=== PATIENT | female | born 1935 | race Caucasian/White ===

== ENCOUNTER 2017-01-23 17:39 | Observation (INO) | payer MEDICARE, OTHER ==
[~2017-01-23] VITALS: Ht 182.9 cm; Wt 97.3 kg
[~2017-01-23 17:39] MED LIST: CHOL100045 PO; FENO160T PO; HYDR25TA4 PO; LEVO100T97 PO; LISI-567 PO; Metoprolol Tartrate PO; NITR0.4T SL; OMEG1CAP17 PO; RIVA20TA PO; SERT20OR PO
[2017-01-23 17:43] VITALS: BP 188/71; PULSE 62; RESP 16; O2SAT 97
--- NOTE | 2017-01-23 18:08 | ED.REPORT ---
HPI-Neurologic Deficit Date of Service Jan 23, 2017 ED Provider: Dr. Darrius Madrid D.O. The patient is an 81 year old female with a medical history including hypertension, paroxysmal atrial fibrillation, asthma, and peripheral vascular disease predominantly affecting carotid arteries who presents to the ED accompanied by her daughter reporting aphasia onset 16:30. Associated symptoms include headache, confusion, and slurred speech. She has been short of breath recently but attributes this to allergies. The patient denies chest pain, new neck pain, vomiting, diarrhea, dysuria, numbness, weakness, or other symptoms. She has never had similar symptoms in the past. The patient took 81mg ASA at onset. Her symptoms have completely resolved in the ED. Nursing Notes Stated Complaint: UNINTELLIGIBLE SPEECH Chief Complaint: Stroke Symptoms Nursing Notes Reviewed: Yes Allergies: Coded Allergies: Penicillins (Verified Allergy, Mild, 01/23/17) Per patient report, "Instant vaginal infection once I take Penicillin." Scheduled Hydrochlorothiazide (Hydrochlorothiazide) 25 Mg Tablet 25 MG PO DAILY Levothyroxine (Synthroid) 100 Mcg Tablet 100 MCG PO DAILY Lisinopril (Lisinopril) 20 Mg Tablet 20 MG PO DAILY General Time Seen by Provider: 18:08 Chief Complaint Other (Aphasia) Hx Obtained From: Patient, Daughter Arrived By: Walk-in Sudden in Onset?: Yes Onset Occurred: 1 - 4 hours ago Symptom Duration: 1 - 4 hours Progression Since Onset: Resolved Location: : Head Quality: Painful Severity: Current: No pain currently Severity: Maximum: Moderate Related History: Reports: Atrial fibrillation, Hypertension Immunizations: Unknown Recent Healthcare: No recent doctor visit Similar Sx Previous: No Risk Factors NIH Stroke Scale Level of Consciousness: Alert and responsive (0) Ask Month & Age: Both questions right (0) Open/Close Eyes/Hand Line Pilot: Performs both tasks (0) Horizontal EO Movements: None (0) Visual Sanchez: No visual loss (0) Facial Palsy: Normal symmetry (0) Right Arm Motor Drift (10s): No drift 10 sec (0) Left Arm Motor Drift (10s): No drift 10 sec (0) Right Leg Motor Drift (5s): No drift 5 sec (0) Left Leg Motor Drift (5s): No drift 5 sec (0) Limb Ataxia FNF/Heel-Colvin: No ataxia (0) Sensation (Arms/Legs/Face): No sensory loss (0) Language Aphasia: No aphasia, normal (0) Dysarthria: No dysarthria, normal (0) Extinction/Inattention: No exctinct/inattent (0) NIHSS Score: 0 Time NIHSS Performed: 18:25 Date NIHSS Performed: Jan 23, 2017 Past Medical History Past Medical History 1. Peripheral vascular disease predominantly affecting carotid arteries. 2. Dyslipidemia. 3. Hypertension. 4. Hypothyroidism. 5. Paroxysmal atrial fibrillation. 6. Degenerative disease/chronic back pain. 7. "Reactive airways disease ?" Reports: Asthma, Hypertension Past Surgical History None reported Family History One sister has had a pacemaker Another sister from heart related disease Smoking History Never Smoker Social History Drug Use: Denies drug use Other Social History: Good social support Ambulatory Status Independent Review of Systems Constitutional: Denies: Fever Respiratory: Reports: Shortness of breath, Denies: Non-productive cough Cardiovascular: Denies: Chest pain GI: Denies: Diarrhea, Nausea, Vomiting Musculoskeletal: Denies: Neck pain Neurologic: Reports: Confusion, Headache, Slurred speech, Unable to speak, Denies: Numbness, Weakness Complete sys rev & neg: except as marked. Female: Denies: Dysuria Physical Exam Initial Vital Signs Vital Signs (First) Date Time Temp Pulse Resp B/P Pulse Ox O2 Delivery O2 Flow Rate FiO2 01/23/17 17:43 36.9 62 16 188/71 97 Room Air Initial VS: Reviewed ENT: Mucous membranes moist, Conjunctiva normal Neck: Supple, Full range of motion Abdomen / GI: Soft, Non-tender Skin: Warm, Dry, No cyanosis Psychiatric: Mood/affect normal, Behavior normal, Normal thought content General/Constitutional: Awake, Alert, No acute distress Head / Eyes: Atraumatic, Normocephalic, PERRL, EOMI Respiratory / Chest: Breath sounds NL, Breath sounds = bilat, No respiratory distress Cardiovascular: Heart rate NL, Regular rhythm, Heart sounds NL Neurologic: Oriented X3, Speech NL, No motor deficits, No sensory deficits, CN II - XII intact Interpretation & Diagnostics Lab Results Interpretation Result Diagram: 01/23/17181001/23/17 181 Test 01/23/17 18:11 White Blood Count 8.1th/mm3 (3.8-10.1) Red Blood Count 4.75mil/mm3 (3.90-5.20) Hemoglobin 14.1g/dL (12.0-15.6) Hematocrit 42.2% (35.0-46.0) Mean Corpuscular Volume 88.8fL (81-100) Mean Corpuscular Hemoglobin 29.7pg (27.0-35.0) Mean Corpuscular Hemoglobin Concent 33.4% (32.0-37.0) Red Cell Distribution Width 12.8% (12.3-15.4) Platelet Count 217bil/L (150-400) Neutrophils (%) (Auto) 52.1% (40-74) Lymphocytes (%) (Auto) 33.9% (14-46) Monocytes (%) (Auto) 9.8% (4-12) Eosinophils (%) (Auto) 3.8% (0-5) Basophils (%) (Auto) 0.2% (0-3) Prothrombin Time 10.7sec (8.1-12.5) Prothromb Time International Ratio 1.00ratio Activated Partial Thromboplast Time 30.4sec (22.8-33.0) Sodium Level 132mEq/L (134-144) Potassium Level 3.5mEq/L (3.5-5.2) Chloride Level 94mEq/L (97-108) Carbon Dioxide Level 24mmol/L (18-29) Blood Urea Nitrogen 22mg/dL (8-27) Creatinine 0.96mg/dL (0.57-1.00) Estimat Glomerular Filtration Rate 80mL/min (>59) Glucose Level 117mg/dL (60-99) Calcium Level 9.1mg/dL (8.5-10.1) Total Bilirubin 0.9mg/dL (0.0-1.2) Aspartate Amino Transf (AST/SGOT) 29U/L (0-50) Alanine Aminotransferase (ALT/SGPT) 24U/L (0-32) Alkaline Phosphatase 90U/L (25-165) Troponin T < 0.010ug/L (0.0-0.011) Total Protein 7.1g/dL (6.4-8.4) Albumin 4.1g/dL (3.4-5.0) Triglycerides Level 157mg/dL (0-149) Cholesterol Level 191mg/dL (100-199) LDL Cholesterol, Calculated 121.600mg/dL (0-99) VLDL Cholesterol 31.400mg/dL HDL Cholesterol 38mg/dL (>39) Cholesterol/HDL Ratio 5.03 (0.0-4.4) Thyroid Stimulating Hormone (TSH) 0.397uIU/mL (0.450-4.500) Free Thyroxine 1.55ng/dL (0.82-1.77) ECG Interpretation ECG Interpretation: Sinus rhythm rate 60 Probable left atrial enlargement Time: 18:18 Interpreted by: ED physician CT Head Interpretation IMPRESSION: No acute intracranial disease process. Dictated by: Stephanie Munoz MD, PhD on 01/23/2017 at 18:18 Study: Head CT no contrast Interpretation / Wet Read by: Interpret - Radiologist Re-Eval/Medical Decision Med Decision/Clinical Course Very pleasant 81-year-old female with resolved aphasia symptoms consistent with a transient ischemic attack. Her CT scan today and now is reassuring. We will admit to complete the stroke workup. She will be treated with aspirin. Source of Hx: Old records Re-Evaluation/Progress : Time of Eval: 19:19 Patient Status: Condition improved Re-Evaluation/Progress Note: Discussed with patient CT and lab results, diagnosis, and plan for admit. Patient agrees with plan for care and all questions were addressed. Consultation : Referral / Consult Name: Fidelina Hernandez DO Consulted With: Hospitalist Call Returned at: 19:16 Drywall Worker: Agrees with eval, Agrees with plan, Accepts admit Counseled Regarding: Diagnosis, Lab results, Need for admission Discharge & Departure Impression: Primary Impression: Transient ischemic attack Transient cerebral ischemia type: unspecified Qualified Code: G45.9 - Transient cerebral ischemic attack, unspecified Disposition: ADMITTED TO HOSPITAL Discharge Condition All VS Reviewed: Yes Condition: Improved Referrals: Steph Castillo MD (PCP) Tahmina Attestation Portions of this note were transcribed by Zoraida Thruman. I, Dr. Madrid, personally performed the history, physical exam, and medical decision-making; I reviewed and confirmed the accuracy of the information in the transcribed note. Signed by: Tahmina Atwood, 01/23/2017, 19:30 copies to: Steph Castillo MD, Todd P DO Jan 23, 2017 18:08 ZORAIDA THURMAN Jan 23, 2017 18:12
--- NOTE | 2017-01-23 18:21 | DRSVH ---
PROCEDURE: CT BRAIN WITHOUT CONTRAST ([id number]) INDICATIONS: probable TIA TECHNIQUE: Noncontrast 4.5 mm thick angled axial sections acquired from the foramen magnum to the vertex, with c oronal reformats. COMPARISON: None. FINDINGS: Image quality: Excellent. CSF spaces: Basal cisterns are patent. No extra-axial fluid collections. The ventricles are symmet melvina in size and shape. Brain: No intracranial bleeds or masses. There is cerebral volume loss for age, with resultant vent ricular and sulcal prominence. There are periventricular and deep white matter chronic small vessel ischemic changes. There is intracranial internal carotid artery and vertebral artery atherosclerosis . Skull and face: Calvarium and visualized facial bones appear intact, without suspicious lesions. Sinuses: Visualized sinuses and mastoids are clear. IMPRESSION: No acute intracranial disease process. Dictated by: Stephanie Munoz MD, PhD on 01/23/2017 at 18:18 Approved by: Stephanie Munoz MD, PhD on 01/23/2017 at 18:19
[2017-01-23 18:30] VITALS: BP 166/61; PULSE 68; RESP 16; O2SAT 98
[2017-01-23 18:35] LABS: BASOPHILS % (AUTO) 0.2 % (0-3); EOSINOPHILS % (AUTO) 3.8 % (0-5); MONOCYTES % (AUTO) 9.8 % (4-12); Mean Corpuscular Hemoglobin 29.7 pg (27.0-35.0); Mean Corpuscular Volume 88.8 fL (81-100); NEUTROPHILS % (AUTO) 52.1 % (40-74); Platelet Count 217 bil/L (150-400)
[2017-01-23 18:49] LABS: TROPONIN T < 0.010 ug/L (0.0-0.011)
[2017-01-23 19:31] VITALS: BP 173/58; PULSE 63; RESP 18; O2SAT 98
[2017-01-23 19:45] VITALS: BP 173/58; PULSE 63; RESP 18; O2SAT 98
[2017-01-23] MEDS ORDERED: Alum-Mag Hydrox-Simeth 30 mL Suspension PO PRN (19:50)
[2017-01-23] MEDS ORDERED: Ondansetron 2 mg/mL 2 mL Inj IVPUSH PRN (19:50)
--- NOTE | 2017-01-23 20:13 | PCM.HPMED ---
Subjective Date of Service Jan 23, 2017 Primary Provider: Admitting Physician: Fidelina Hernandez DO Primary Care Physician: Steph Castillo MD Attending Physician: Fidelina Hernandez DO Admit Status: From the Emergency Department Chief Complaint: Expressive aphasia History of Present Illness: This is a 81-year-old female with past medical history significant for hypothyroidism, hypertension, and paroxysmal atrial fibrillation who presents after sudden onset of speech difficulty. The patient states that at approximate 4:30 PM today she was sitting with her family when she developed "garbled speech." She she denies any confusion but states that she was not able to speak in any discernible language. Just before the onset of the speech difficulty she had a migraine headache. Her migraine headaches are chronic and described as partial loss of vision and gait instability. These have been ongoing for years. At the onset of the symptoms she took a 81 mg aspirin. The symptoms had resolved and she was back to her baseline by within one hour.. She denies any other symptoms such as chest pain or pressure, nausea, vomiting, diaphoresis, numbness or tingling in extremities. Initial vital signs were temperature 36.9 Celsius, pulse 62, respiratory rate 16 , blood pressure 180/71, satting at 97% on room air. CBC showed no concerning abnormalities. Sodium was 132, glucose 117, troponin less than 0.010. EKG showed sinus rhythm with rate of 60, probable left atrial enlargement and left ventricular hypertrophy. CT of the brain without contrast showed no acute intracranial disease process. In the emergency department the patient was given aspirin 81 mg. Review of Systems: A comprehensive review of systems was conducted with the patient and found to be negative except as above in the History of Present Illness. Allergies Coded Allergies: Penicillins (Verified Allergy, Mild, 01/23/17) Per patient report, "Instant vaginal infection once I take Penicillin." Home Medications Hydrochlorothiazide 25 mg daily Levothyroxine 100 mg daily Lisinopril 20 mg daily PMH Hypothyroidism Hypertension Peripheral vascular disease predominantly affecting carotid arteries Paroxysmal atrial fibrillation: One episode several years ago. Degenerative disease Possible history of reactive airway disease. Surgical History None Family History Father of CVA. Mother of congestive heart failure. Social History Hx Alcohol Use: No Hx Substance Use: No Smoking Status: Never Smoker Exam Vital Signs Vital Sign - Last Date Time Temp Pulse Resp B/P Pulse Ox O2 Delivery O2 Flow Rate FiO2 6/7/17 19:45 63 18 173/58 98 Room Air 01/23/17 17:43 36.9 Exam General: No acute distress, well-developed, well-nourished, appropriately interactive, appears younger than age. HEENT: Normocephalic, atraumatic. External ears without defect. Pupils equal, round, and reactive to light and accommodation. Anicteric sclerae, moist conjunctivae, and no lid lag. Oropharynx free of erythema and cobble stoning with moist mucosa. Neck: Supple with full range of motion. No jugular venous distension. No bruits. No lymphadenopathy or thyromegaly. Cardiovascular: Regular rate and rhythm. 2/6 murmur heard at right sternal border., No rubs or gallops appreciated Pulmonary: Clear to auscultation bilaterally with no crackles, wheezes, or rhonchi. Normal respiratory effort with no use of accessory muscles. Abdomen: Bowel tones present. Soft, nontender, nondistended. No hepatosplenomegaly or masses appreciated. Extremities: No clubbing, cyanosis, edema, or lymphadenopathy appreciated. Skin: Normal temperature, turgor, and texture; no rash, ulcers, or subcutaneous nodules appreciated. Neurological: Cranial nerves grossly intact. Normal muscle strength, tone, and bulk. Reflexes, coordination, and sensory function within normal limits. No known gait impairment. Woli-ye-nvdm tests within normal limits. No upper or lower extremity drift. Psychiatric: Normal mood and affect. Alert and oriented to person, place, and time. Lab and Diagnostics Result Diagram: 01/23/17 1811 01/23/17 1811 X-Rays, CTs and MRIs CT brain without contrast on 01/23/2017: IMPRESSION: No acute intracranial disease process. Dictated by: Stephanie Munoz MD, PhD on 01/23/2017 at 18:18 Assessment & Plan This is a 81-year-old female past medical history significant for hypertensio and paroxysmal atrial fibrillation, and peripheral vascular disease primarily affecting the carotid arteries who presents today with expressive aphasia. The speech difficulty was preceded by a migraine headache which she gets chronically. At the onset of the symptoms of the expressive aphasia she took a aspirin 81 mg. Within 1 hour she had returned back to baseline. Expressive aphasia, present on admission, ongoing: -Likely a transient ischemic attack versus CVA. In the differential is complex migraine. -MRI stroke protocol and morning -Nothing by mouth until speech eval. -Aspirin daily. -Patient declines statin. -Permissive hypertension protocol. -Lipid panel and hgbA1c -Hypertension, present on admission: -We will hold lisinopril, hydrochlorothiazide. -Permissive hypertension protocol. History of paroxysmal atrial fibrillation, present on admission, stable: -Patient states she had one episode of atrial fibrillation several years ago. She denies any additional episodes. -Follow-up with her care provider concerning possible atrial fibrillation. -We will place on telemetry overnight. Hypothyroidism, present on admission: -Continue levothyroxine. TSH and free t4 ordered. Hyponatremia, present remission, ongoing: -Mild hyponatremia with sodium of 132. Likely secondary to hypovolemia and hydrochlorothiazide. -NS at 70 ml/hr. -CMP in the morning. Elevated blood glucose level, present on admission, ongoing: -Blood glucose on admission 117. -A1c ordered. DVT prophylaxis with Lovenox. Patient is admitted under observation status with expected length of stay less than 2 midnights due to severity of presenting symptoms, risk of adverse event, and complexity of treatment plan. Pain Evaluation: Adequate Pain Control Resuscitation Status: DNR/DNI:Do Not Resuscitate/Intubate Attending Statement The patient was seen and examined together with house staff on 01/23/2017 and I agree with the history, exam and plan as outlined in the note above. Alverto Espinoza DO Jan 23, 2017 20:13 Fidelina Hernandez DO Jan 24, 2017 00:30
[2017-01-23 20:24] LABS: APPEARANCE,URINE HAZY (CLEAR,HAZY); COLOR,URINE YELLOW (YELLOW)
[2017-01-23] MEDS ORDERED: Labetalol 5 mg/mL 4 mL Inj IVPUSH PRN (20:25)
[2017-01-23] MEDS ORDERED: hydrALAZINE 20 mg/mL Inj IVPUSH PRN (20:25)
[2017-01-23] MEDS ORDERED: Polyethylene Glycol (PEG) 17 Gm Powder PO PRN (20:25)
[2017-01-23 20:27] LABS: OCCULT BLOOD,URINE NEGATIVE (NEGATIVE)
[2017-01-23 20:28] VITALS: BP 156/61; PULSE 58; RESP 18; O2SAT 95
[2017-01-23 20:28] LABS: UROBILINOGEN,URINE NORMAL (NORMAL)
[2017-01-23] MEDS: 0.9% Sodium Chloride 1,000 ML IV SCH (21:14)
[2017-01-24] VITALS (8 sets, daily range): BP systolic 142–167; BP diastolic 64–81; PULSE 60–74; RESP 16–20; O2SAT 94–98
[2017-01-24 06:33] LABS: BASOPHILS % (AUTO) 0.4 % (0-3); EOSINOPHILS % (AUTO) 4.8 % (0-5); MONOCYTES % (AUTO) 9.8 % (4-12); Mean Corpuscular Volume 89.8 fL (81-100); Platelet Count 216 bil/L (150-400)
[2017-01-24] MEDS: 0.9% Sodium Chloride 1,000 ML IV SCH (10:48)
--- NOTE | 2017-01-24 10:57 | DRSVH ---
PROCEDURE: MRI STROKE PROTOCOL ([id number]) Pre- and post-contrast brain MRI, non-contrast brain MR angiogram, pre- and postcontrast neck MR kobe ogram INDICATIONS: Expressive aphasia TECHNIQUE: Brain: Noncontrast axial T1 spin echo, axial T2 fast spin echo, sagittal and axial FLAIR, coronal T2 fast spin echo, axial gradient echo, axial diffusion and ADC through the brain. After the administr ation of contrast, axial 3D VIBE of the cranial vasculature and brain. Brain MRA: Non-contrast 3-D time of flight MR angiogram, with multiple lsrjxyu-yttueqvrc-bunrdheujl (MIP) reformats performed. Neck MRA: Axial and sagittal TruFISP through the neck. Coronal dynamic MR angiogram during administ ration of contrast in the arterial and venous phases, with 3-dimenstional dfgvwfo-tafbttvfu-hrjlyzfkf n (MIP) reformats constructed from subtraction images. COMPARISON: [facility], CT, CT BRAIN WO CON, 01/23/2017, 18:04. FINDINGS: Image quality: Excellent. BRAIN: CSF spaces: There is mild cerebral volume loss with prominence of the ventricles and sulci. Basal c isterns are patent. No extra-axial fluid collections. Brain: No intracranial hemorrhage, mass, or mass effect. Chiang-white matter interface is preserved. Diffusion weighted images demonstrate no acute infarcts. Brainstem appears normal. Normal intravas cular flow voids are present. No abnormal intracranial enhancement. Skull and face: Calvarial marrow signal is normal. Orbits appear normal. Sinuses: Sinuses and mastoids are clear. BRAIN MR ANGIOGRAM: Anterior circulation: Intracranial internal carotid arteries are patent bilaterally. The flow withi n the paired anterior cerebral arteries is patent bilaterally. The flow within the middle cerebral a rteries is patent bilaterally. The anterior communicating artery appears patent. No high-grade sten oses, occlusions, or aneurysms. Posterior circulation: The visualized portions of the vertebral appear patent bilaterally and join t o form a patent basilar artery. The flow within the posterior cerebral arteries is patent bilaterall y. No high-grade stenoses, occlusions, or aneurysms. NECK MR ANGIOGRAM: Carotids: Great vessels demonstrate a bovine aortic arch with common origin of the right cephalic an d left common carotid arteries as they arise from the aortic arch. The origins of the common carotid arteries appear patent. The calibers and courses of both common carotid arteries are normal. There is mild narrowing of less than 50% in the right carotid bulb. The left carotid bulb is widely paten t. The internal carotid arteries demonstrate normal course and caliber. Posterior circulation: The origins of the vertebral arteries appear patent. More superior portions of both vertebral arteries demonstrate normal course and caliber, and join to form a normal appearing basilar artery. Miscellaneous: Subclavian arteries appear patent. Pre-contrast images through the neck demonstrate mild degenerative disc disease in the lower cervical spine at C6-C7. IMPRESSION: BRAIN MRI: 1. No evidence of infarct or other acute intracranial abnormality. 2. Mild cerebral volume loss. BRAIN MR ANGIOGRAM: 1. No high-grade stenosis or occlusion of the central intracranial arteries. NECK MR ANGIOGRAM: 1. No high-grade stenosis or occlusion of the head and neck arteries. There is mild narrowing of le ss than 50% in the right carotid bulb. The estimate of stenosis included in the report of the imaging study was calculated using the NASCET method Dictated by: Cali King M.D. on 01/24/2017 at 10:46 Approved by: Cali King M.D. on 01/24/2017 at 10:56
--- NOTE | 2017-01-24 11:27 | NUR ---
Evaluation completed. Please go to "Notes" then click on "Assessments and Notes" (bottom left corner of screen). Then select appropriate discipline tab on top of screen.
--- NOTE | 2017-01-24 16:42 | NUR ---
Social Work: Initial Assessment / Readiness for d/c Data: Pt is an 81 y/o female admitted for TIA with resolved aphasia. Pt's PCP is Dr Castillo, pt's insurance is Medicare with [employer]. EMR reviewed. Readmit score not listed. TITLE SEARCHER met with pt at bedside, role explained. Pt states she lives independently with her in a senior living facility with no DME. pt drives, has no hx of HH or SNF, pt has LTC insurance, no VA benefits, is not a caregiver. No D/C planning needs at this time. MD states pt likely to d/c today or tomorrow. No further TITLE SEARCHER needs, TITLE SEARCHER will continue to follow if needs arise. Assessment: Pt who is independent at baseline. Plan: Pt will d/c home via POV when medically stable, likely today or tomorrow per MD. No D/C planning needs at this time. MD states pt likely to d/c today or tomorrow. No further TITLE SEARCHER needs, TITLE SEARCHER will continue to follow if needs arise. LUDMILA Bolanos Addendum: 01/24/17 at 1645 by DANNY ORELLANA SS Amended: Links added.
--- NOTE | 2017-01-24 17:54 | NUR ---
Activity: Patient had MRI and ECHO today. She has no Noticable Neuro Deficites. She is able to verbalize appropriately. She is using her call light to ask for help and she ambulates in her room independent.
--- NOTE | 2017-01-24 18:45 | NUR ---
Case Management: Explained JURADO to patient at 1730, all questions answered. Signed original placed in chart, copy given to patient. Ethel Nino RN
--- NOTE | 2017-01-25 00:20 | PCM.PNMED ---
Subjective Date of Service Jan 25, 2017 Subjective Patient is feeling well she states she is back to her baseline mental function. Exam Vital Signs Vital Sign - Last Date Time Temp Pulse Resp B/P Pulse Ox O2 Delivery O2 Flow Rate FiO2 01/24/17 21:00 36.6 60 18 162/77 94 Room Air Intake and Output 01/24/17 01/24/17 01/25/17 Cumulative From/Thru 15:00 23:00 07:00 01/23/17 17:43 - 01/24/17 19:07 Intake Total 1000 ml 1592 ml Output Total 700 ml Balance 1000 ml 892 ml Intake Oral 1000 ml 1000 ml IV Total 592 ml Output Urine Total 700 ml # Voids 4 4 # Bowel Movements 1 1 Exam General: Patient is in no apparent distress HEENT: Head is atraumatic and normocephalic. Eyes: Pupils are equally round and reactive to light and accommodation. Extraocular muscles are intact. Sclera are white, anicteric. Subconjunctival mucosa is pink. Ears and nose are unremarkable. Oropharynx: There is no mucosal lesions, there is no thrush, there is no pharyngitis. Neck: Is supple, there are no nodes, or masses or tenderness. Chest: Is clear to auscultation and percussion. There are no rales, rhonchi, wheezes or rubs. Heart: Rate, rhythm is regular. There is no murmur, rub or gallop. Abdomen: Good bowel sounds are present. Abdomen is soft, nontender, no organomegaly or masses were appreciated. Extremities: Are symmetrical and well perfused. There is no edema, there is no cellulitis, no rash. Neurologic: There are no focal neurological deficits. Cranial nerves II through XII are intact. There are no sensory or motor deficits. Psychiatric: Patients mood is calm and shows no sign of agitation. Genital: Deferred Rectal: Deferred Lab and Diagnostics Result Diagram: 01/24/1760401/24/17604 Microbiology Name: PEGGY GHOTRA Age/Sex: 81/F Attend Dr: Fidelina Hernandez Acct: [id number] Unit: [id number] Status: ADM Dipti Location: [facility] [place] 3025-1 Re01/23/17 Disch: Specimen: [id number] Collected: 01/23/17 Status: RES Req#: [id number] Received: 01/23/17 Source: URINE CC Sp Desc : STUART Francis Dr: ANDREY LIZAMA MD Ordered: URINE CULT Procedure Result Verified Site Microbiology TYESHA CULT URINE Preliminary 01/24/17 Insufficient growth, culture is reincubated. X-Rays, CTs and MRIs CT brain without contrast on 01/23/2017: IMPRESSION: No acute intracranial disease process. Dictated by: Stephanie Munoz MD, PhD on 01/23/2017 at 18:18 PROCEDURE: MRI STROKE PROTOCOL ([id number]) Pre- and post-contrast brain MRI, non-contrast brain MR angiogram, pre- and postcontrast neck MR angiogram INDICATIONS: Expressive aphasia TECHNIQUE: Brain: Noncontrast axial T1 spin echo, axial T2 fast spin echo, sagittal and axial FLAIR, coronal T2 fast spin echo, axial gradient echo, axial diffusion and ADC through the brain. After the administration of contrast, axial 3D VIBE of the cranial vasculature and brain. Brain MRA: Non-contrast 3-D time of flight MR angiogram, with multiple maximum- intensity-projection (MIP) reformats performed. Neck MRA: Axial and sagittal TruFISP through the neck. Coronal dynamic MR angiogram during administration of contrast in the arterial and venous phases, with 3-dimenstional knyjdhg-cjmhxewei-oedkbzvjcu (MIP) reformats constructed from subtraction images. COMPARISON: [facility], CT, CT BRAIN WO CON, 01/23/2017, 18:04. FINDINGS: Image quality: Excellent. BRAIN: CSF spaces: There is mild cerebral volume loss with prominence of the ventricles and sulci. Basal cisterns are patent. No extra-axial fluid collections. Brain: No intracranial hemorrhage, mass, or mass effect. Chiang-white matter interface is preserved. Diffusion weighted images demonstrate no acute infarcts. Brainstem appears normal. Normal intravascular flow voids are present. No abnormal intracranial enhancement. Skull and face: Calvarial marrow signal is normal. Orbits appear normal. Sinuses: Sinuses and mastoids are clear. BRAIN MR ANGIOGRAM: Anterior circulation: Intracranial internal carotid arteries are patent bilaterally. The flow within the paired anterior cerebral arteries is patent bilaterally. The flow within the middle cerebral arteries is patent bilaterally. The anterior communicating artery appears patent. No high-grade stenoses, occlusions, or aneurysms. Posterior circulation: The visualized portions of the vertebral appear patent bilaterally and join to form a patent basilar artery. The flow within the posterior cerebral arteries is patent bilaterally. No high-grade stenoses, occlusions, or aneurysms. NECK MR ANGIOGRAM: Carotids: Great vessels demonstrate a bovine aortic arch with common origin of the right cephalic and left common carotid arteries as they arise from the aortic arch. The origins of the common carotid arteries appear patent. The calibers and courses of both common carotid arteries are normal. There is mild narrowing of less than 50% in the right carotid bulb. The left carotid bulb is widely patent. The internal carotid arteries demonstrate normal course and caliber. Posterior circulation: The origins of the vertebral arteries appear patent. More superior portions of both vertebral arteries demonstrate normal course and caliber, and join to form a normal appearing basilar artery. Miscellaneous: Subclavian arteries appear patent. Pre-contrast images through the neck demonstrate mild degenerative disc disease in the lower cervical spine at C6-C7. IMPRESSION: BRAIN MRI: 1. No evidence of infarct or other acute intracranial abnormality. 2. Mild cerebral volume loss. BRAIN MR ANGIOGRAM: 1. No high-grade stenosis or occlusion of the central intracranial arteries. NECK MR ANGIOGRAM: 1. No high-grade stenosis or occlusion of the head and neck arteries. There is mild narrowing of less than 50% in the right carotid bulb. The estimate of stenosis included in the report of the imaging study was calculated using the NASCET method Dictated by: Cali King M.D. on 01/24/2017 at 10:46 Approved by: Cali King M.D. on 01/24/2017 at 10:56 Cardiac Echo Impressions Pending Assessment & Plan This is a 81-year-old female past medical history significant for hypertensio and paroxysmal atrial fibrillation, and peripheral vascular disease primarily affecting the carotid arteries who presents today with expressive aphasia. The speech difficulty was preceded by a migraine headache which she gets chronically. At the onset of the symptoms of the expressive aphasia she took a aspirin 81 mg. Within 1 hour she had returned back to baseline. Expressive aphasia, present on admission, now resolved.: -Likely a transient ischemic attack versus CVA. In the differential is complex migraine. -MRI stroke protocol fails to reveal a cause of the above symptoms. -Speech therapy has evaluated the patient and patient is back to baseline and may eat. -We will continue Aspirin daily. -Patient declines statin. However, I believe I have talked her into trying a statin as her best friend is on a statin for the same or similar diagnosis. -Permissive hypertension protocol. -Lipid panel and hgbA1c - Awaiting echocardiogram which is still pending. -Hypertension, present on admission: -We will hold lisinopril, hydrochlorothiazide. -Permissive hypertension protocol. History of paroxysmal atrial fibrillation, present on admission, stable: -Patient states she had one episode of atrial fibrillation several years ago. She denies any additional episodes. -Follow-up with her care provider concerning possible atrial fibrillation. -We will continue telemetry. So far patient has not had any episodes of atrial fibrillation since admission. Hypothyroidism, present on admission: -Continue levothyroxine. -TSH and free t4 ordered. Hyponatremia, present remission, ongoing: -Mild hyponatremia with sodium of 132. Likely secondary to hypovolemia and hydrochlorothiazide. -Continue NS at 70 ml/hr. -Repeat CMP in the morning. Elevated blood glucose level, present on admission, ongoing: -Blood glucose on admission 117. -A1c ordered. DVT prophylaxis with Lovenox. Disposition: Awaiting echocardiogram to be performed and read prior to discharge. Pain Evaluation: Adequate Pain Control GI Prophylaxis: Not indicated VTE Prophylaxis: Sub-Q Enoxaparin Resuscitation Status: DNR/DNI:Do Not Resuscitate/Intubate Alverto Dahl MD Jan 25, 2017 00:20
[2017-01-25] MEDS: 0.9% Sodium Chloride 1,000 ML IV SCH (00:48)
[2017-01-25 01:19] VITALS: BP 119/58; PULSE 55; RESP 18; O2SAT 97
[2017-01-25 05:48] VITALS: BP 138/56; PULSE 53; PULSE 57; RESP 18; O2SAT 95
[2017-01-25 07:01] LABS: BASOPHILS % (AUTO) 0.5 % (0-3); EOSINOPHILS % (AUTO) 5.7 % (0-5); Mean Corpuscular Hemoglobin 29.9 pg (27.0-35.0); Mean Corpuscular Volume 89.3 fL (81-100); NEUTROPHILS % (AUTO) 54.5 % (40-74); Platelet Count 215 bil/L (150-400)
[2017-01-25 08:00] VITALS: PULSE 127; PULSE 63
--- NOTE | 2017-01-25 09:00 | DRSVH ---
[facility] [address] [place] [address] Echocardiogram Report Name: PEGGY GHOTRA RStudanish David e: 01/24/2017 Height: 72 in Hospital Exam Location: [facility] Weight: 214 lb Gender: Female BSA: 2.2 m2 : 1935 Age: 81 yrs BP: 142/64 mmHg Reason For Study: CVA Ordering Physician: [facility] Performed By: Everardo Wilkins Referring Physician: Steph Castillo Interpretation Summary The left ventricle is normal in size, wall thickness, and systolic function without any focal wall motion abnormalities. The ejection fraction is estimated to be 60-65%. LVEF has not changed since prior study. Assessment of diastolic parameters indicates a relaxation abnormality of the left ventricle, consistent with normal filling pressures. The right ventricle is normal in size, thickness and function. Pulmonary artery pressures cannot be estimated because of the lack of a measurable TR jet velocity. Both atria are normal in size. The interatrial septum is intact with no evidence for an atrial septal defect. Injection of contrast documented no interatrial shunt. There is no significant valvular heart disease. The ascending aorta is mildly enlarged. There has been no significant change since the previous study. Procedure: A two-dimensional transthoracic echocardiogram with color flow and Doppler was performed. The study quality was technically adequate. A saline contrast injection was performed to assess for cardiac shunting. A contrast injection of Definity was performed to improve assessment of LV function. The patient was in normal sinus rhythm during the exam. Left Ventricle: The left ventricle is normal in size, wall thickness, and systolic function without any focal wall motion abnormalities. The ejection fraction is estimated to be 60-65%. Assessment of diastolic parameters indicates a relaxation abnormality of the left ventricle, consistent with normal filling pressures. Right Ventricle: The right ventricle is normal in size, thickness and function. Atria: Both atria are normal in size. The interatrial septum is intact with no evidence for an atrial septal defect. Injection of contrast documented no interatrial shunt. Mitral Valve: The mitral valve is normal in structure and function. There is trace mitral regurgitation. Aortic Valve: The aortic valve is trileaflet. The aortic valve opens well. No aortic regurgitation is present. Tricuspid Valve: The tricuspid valve is normal in structure and function. There is a trace or physiologic amount of tricuspid regurgitation. Pulmonary artery pressures cannot be estimated because of the lack of a measurable TR jet velocity. Pulmonic Valve: The pulmonic valve is not well seen, but is grossly normal. There is no pulmonic valvular regurgitation. There is no significant valvular heart disease. Great Vessels: The aortic root is normal size. The ascending aorta is mildly enlarged. There has been no significant change since the previous study. The pulmonary artery is normal size. The IVC is of normal diameter and collapses greater than 50% with a sniff. This suggests a low right atrial pressure of 3 mm Hg. Pericardium/ Pleura There is no pericardial effusion. There is no pleural effusion. MMode/2D Measurements & Calculations LVIDd: 4.8 cm LA dimension: 3.6 cm RA long axis LVOT diam: 2.2 cm LVIDs: 2.6 cm AoV Opening FS: 46.6 % LA A2 area: 20.3 cm RA area EPSS: 0.49 cm LA A4 area: 15.8 cm Ao root diam IVSd: 0.99 cm LA length (vol) : 17.1 cm LVPWd: 0.96 cm RA vol asc Aorta Diam LA vol: 54.5 ml : 46.8 ml LA vol index RA Ao Arch Diam (Prox : 21.3 mm2 Trans): 2.7 cm IVC diam: 1.8 cm LV lucas. diameter/BSA LV sys. diameter/BSA RVD1 (basal) RVD2 (mid): 2.7 cm (cm/m^2): 2.2 (cm/m^2): 1.2 Doppler Measurements & Calculations Ao V2 max MV E max danny MV E/A: 0.81 PA V2 max : 129.9 cm/sec : 66.4 cm/sec Med Peak E' Danny : 75.4 cm/sec Ao max P.8 mmHg MV A max danny PA mean PG Ao mean P.1 mmHg : 81.7 cm/sec E/E' med: 9.3 LVOT Max Danny Lat Peak E' Danny PA Accel Time : 119.2 cm/sec : 0.09 sec E/E' lat: 14.8 CHRISTINE(I,D): 3.4 cm E/e' average sev ratio: 0.90 Pulm A Revs Dur MV A dur : 0.13 sec MV dec time: 0.30 secAo V2 mean LV V1 max PG PA V2 mean : 97.0 cm/sec : 59.9 cm/sec Ao V2 VTI: 34.3 cm LV V1 VTI : 31.0 cm CHRISTINE(V,D): 3.4 cm2 CHRISTINE indexed to BSA Pulm A Revs Dur - MV A (cm^2/m^2): 1.5 Dur: -0.00 msec Reading Physician:BEKAH
[2017-01-25] MEDS ORDERED: cefTRIAXone Inj 2,000 MG in Dextrose 5% Minibag Plus 50 ML IV SCH (09:30)
[2017-01-25 10:01] VITALS: BP 155/82; PULSE 58; RESP 18; O2SAT 96
[2017-01-25 13:54] VITALS: BP 181/75; RESP 16; O2SAT 96
--- NOTE | 2017-01-25 14:32 | NUR ---
Social Work: Discharge Data: Pt is on day 2 of hospitalization. EMR reviewed. D/C orders are in. No d/c planning needs at this time. [employer] will continue to follow if needs arise. Assessment: Pt who is independent at baseline. Plan: Pt will d/c home via POV today. No d/c planning needs at this time. [employer] will continue to follow if needs arise. LUDMILA Bolanos
--- NOTE | 2017-01-25 14:35 | PCM.DIMED ---
Discharge Instructions Date of Service Jan 25, 2017 Dates of Hospitalization Jan 23, 2017 at 19:42 Diet Discharge Diet: Heart Healthy Activity Discharge Activity: No restrictions (Patient may return to her usual activities gradually as tolerated.) Call your provider Call your provider for: Fever or Chills, Shortness of breath, Bleeding, Chest pain, Vomitting, Excessive diarrhea, Weakness (unilateral) Patient Instructions Follow-up Provider: Steph Castillo MD Follow-up with PCP in: 1 week (Patient needs to be on a Statin and Aspirin) Alverto Dahl MD Jan 25, 2017 14:34
[2017-01-25] MEDS ORDERED: CEFU500T61 PO (14:41)
[2017-01-25] MEDS ORDERED: PRA20 PO (14:41)
[2017-01-25] MEDS ORDERED: ASPI-973 PO (14:41)
--- NOTE | 2017-01-25 15:21 | NUR ---
Discharge Nursing Note: Patient was discharged to home at 1510. Patients IV was removed intact. Her Telemetry was discontinued. All of patients discharge information was reviewed with her and her questions were answered to her satisfaction. Patient ambulated to the [facility] with nursing staff member and she was driven to home by her daughter.
--- NOTE | 2017-01-26 00:24 | PCM.DC.MED ---
Discharge Summary Date of Service Jan 25, 2017 Dates of Hospitalization Date of Hospital Admission Jan 23, 2017 at 19:42 Date of Discharge: Jan 25, 2017 Providers: Admitting Physician: Fidelina Hernandez DO Primary Care Physician: Steph Castillo MD Attending Physician: Fidelina Hernandez DO Diagnosis at Time of Discharge Diagnosis at Time of Discharge Transient ischemic attack Procedures XRay, CTs & MRIs CT brain without contrast on 01/23/2017: IMPRESSION: No acute intracranial disease process. Dictated by: Stephanie Munoz MD, PhD on 01/23/2017 at 18:18 PROCEDURE: MRI STROKE PROTOCOL ([id number]) Pre- and post-contrast brain MRI, non-contrast brain MR angiogram, pre- and postcontrast neck MR angiogram INDICATIONS: Expressive aphasia TECHNIQUE: Brain: Noncontrast axial T1 spin echo, axial T2 fast spin echo, sagittal and axial FLAIR, coronal T2 fast spin echo, axial gradient echo, axial diffusion and ADC through the brain. After the administration of contrast, axial 3D VIBE of the cranial vasculature and brain. Brain MRA: Non-contrast 3-D time of flight MR angiogram, with multiple maximum- intensity-projection (MIP) reformats performed. Neck MRA: Axial and sagittal TruFISP through the neck. Coronal dynamic MR angiogram during administration of contrast in the arterial and venous phases, with 3-dimenstional nlzoafn-lfrxvxecv-abpjypcfde (MIP) reformats constructed from subtraction images. COMPARISON: [facility], CT, CT BRAIN WO CON, 01/23/2017, 18:04. FINDINGS: Image quality: Excellent. BRAIN: CSF spaces: There is mild cerebral volume loss with prominence of the ventricles and sulci. Basal cisterns are patent. No extra-axial fluid collections. Brain: No intracranial hemorrhage, mass, or mass effect. Chiang-white matter interface is preserved. Diffusion weighted images demonstrate no acute infarcts. Brainstem appears normal. Normal intravascular flow voids are present. No abnormal intracranial enhancement. Skull and face: Calvarial marrow signal is normal. Orbits appear normal. Sinuses: Sinuses and mastoids are clear. BRAIN MR ANGIOGRAM: Anterior circulation: Intracranial internal carotid arteries are patent bilaterally. The flow within the paired anterior cerebral arteries is patent bilaterally. The flow within the middle cerebral arteries is patent bilaterally. The anterior communicating artery appears patent. No high-grade stenoses, occlusions, or aneurysms. Posterior circulation: The visualized portions of the vertebral appear patent bilaterally and join to form a patent basilar artery. The flow within the posterior cerebral arteries is patent bilaterally. No high-grade stenoses, occlusions, or aneurysms. NECK MR ANGIOGRAM: Carotids: Great vessels demonstrate a bovine aortic arch with common origin of the right cephalic and left common carotid arteries as they arise from the aortic arch. The origins of the common carotid arteries appear patent. The calibers and courses of both common carotid arteries are normal. There is mild narrowing of less than 50% in the right carotid bulb. The left carotid bulb is widely patent. The internal carotid arteries demonstrate normal course and caliber. Posterior circulation: The origins of the vertebral arteries appear patent. More superior portions of both vertebral arteries demonstrate normal course and caliber, and join to form a normal appearing basilar artery. Miscellaneous: Subclavian arteries appear patent. Pre-contrast images through the neck demonstrate mild degenerative disc disease in the lower cervical spine at C6-C7. IMPRESSION: BRAIN MRI: 1. No evidence of infarct or other acute intracranial abnormality. 2. Mild cerebral volume loss. BRAIN MR ANGIOGRAM: 1. No high-grade stenosis or occlusion of the central intracranial arteries. NECK MR ANGIOGRAM: 1. No high-grade stenosis or occlusion of the head and neck arteries. There is mild narrowing of less than 50% in the right carotid bulb. The estimate of stenosis included in the report of the imaging study was calculated using the NASCET method Dictated by: Cali King M.D. on 01/24/2017 at 10:46 Approved by: Cali King M.D. on 01/24/2017 at 10:56 Cardiac Echo Impression Pending Brief History This is a 81-year-old female with past medical history significant for hypothyroidism, hypertension, and paroxysmal atrial fibrillation who presents after sudden onset of speech difficulty. The patient states that at approximate 4:30 PM today she was sitting with her family when she developed "garbled speech." She she denies any confusion but states that she was not able to speak in any discernible language. Just before the onset of the speech difficulty she had a migraine headache. Her migraine headaches are chronic and described as partial loss of vision and gait instability. These have been ongoing for years. At the onset of the symptoms she took a 81 mg aspirin. The symptoms had resolved and she was back to her baseline by within one hour.. She denies any other symptoms such as chest pain or pressure, nausea, vomiting, diaphoresis, numbness or tingling in extremities. Initial vital signs were temperature 36.9 Celsius, pulse 62, respiratory rate 16 , blood pressure 180/71, satting at 97% on room air. CBC showed no concerning abnormalities. Sodium was 132, glucose 117, troponin less than 0.010. EKG showed sinus rhythm with rate of 60, probable left atrial enlargement and left ventricular hypertrophy. CT of the brain without contrast showed no acute intracranial disease process. In the emergency department the patient was given aspirin 81 mg. patient was brought in under observation to the hospitalist service for further evaluation and treatment. Hospital Course This is a 81-year-old female past medical history significant for hypertensio and paroxysmal atrial fibrillation, and peripheral vascular disease primarily affecting the carotid arteries who presents today with expressive aphasia. The speech difficulty was preceded by a migraine headache which she gets chronically. At the onset of the symptoms of the expressive aphasia she took a aspirin 81 mg. Within 1 hour she had returned back to baseline. Expressive aphasia, present on admission, now resolved.: -Likely a transient ischemic attack versus CVA. In the differential is complex migraine. -MRI stroke protocol fails to reveal a cause of the above symptoms. Therefore diagnosis is likely a transient ischemic attack. -Speech therapy has evaluated the patient and patient is back to baseline and may eat. Also they relate that the patient is back to baseline. -We will continue Aspirin daily. -Patient declines statin. However, I believe I have talked her into trying a statin as her best friend is on a statin for the same or similar diagnosis. She would like to discuss this with her primary care doctor Dr. Castillo. -Permissive hypertension protocol. -Lipid panel and hgbA1c - Awaiting echocardiogram which is still pending. -Hypertension, present on admission: -We will hold lisinopril, hydrochlorothiazide. -Permissive hypertension protocol. History of paroxysmal atrial fibrillation. -Patient states she had one episode of atrial fibrillation several years ago. She denies any additional episodes. -Follow-up with her care provider concerning possible atrial fibrillation. -We will continue telemetry. -Patient has not had any episodes of atrial fibrillation since admission. Hypothyroidism, present on admission: -Continue levothyroxine. -TSH and free t4 ordered. Hyponatremia, present remission, resolved -Mild hyponatremia with sodium of 132. Likely secondary to hypovolemia and hydrochlorothiazide. -Continue NS at 70 ml/hr. -Repeat CMP in the morning. Elevated blood glucose level, present on admission, ongoing: -Blood glucose on admission 117. And on discharge was 116. -A1c ordered. DVT prophylaxis was given with Lovenox. Patient refused her dose today Disposition: The patient's echocardiogram was unremarkable and the patient will be discharged home today to follow-up with Dr. Castillo. Exam Vital Signs (Last) Date Time Temp Pulse Resp B/P Pulse Ox O2 Delivery O2 Flow Rate FiO2 01/25/17 13:54 16 181/75 96 Room Air 01/25/17 10:01 36.6 58 Exam General: Patient is in no apparent distress HEENT: Head is atraumatic and normocephalic. Eyes: Pupils are equally round and reactive to light and accommodation. Extraocular muscles are intact. Sclera are white, anicteric. Subconjunctival mucosa is pink. Ears and nose are unremarkable. Oropharynx: There is no mucosal lesions, there is no thrush, there is no pharyngitis. Neck: Is supple, there are no nodes, or masses or tenderness. Chest: Is clear to auscultation and percussion. There are no rales, rhonchi, wheezes or rubs. Heart: Rate, rhythm is regular. There is no murmur, rub or gallop. Abdomen: Good bowel sounds are present. Abdomen is soft, nontender, no organomegaly or masses were appreciated. Extremities: Are symmetrical and well perfused. There is no edema, there is no cellulitis, no rash. Neurologic: There are no focal neurological deficits. Cranial nerves II through XII are intact. There are no sensory or motor deficits. Psychiatric: Patients mood is calm and shows no sign of agitation. Genital: Deferred Rectal: Deferred Test 01/23/17 18:11 01/23/17 20:06 01/23/17 21:55 01/25/17 06:32 Prothrombin Time 10.7sec (8.1-12.5) Prothromb Time International Ratio 1.00ratio Activated Partial Thromboplast Time 30.4sec (22.8-33.0) Hemoglobin A1c 5.8% (4.8-5.6) Troponin T < 0.010ug/L (0.0-0.011) Triglycerides Level 157mg/dL (0-149) Cholesterol Level 191mg/dL (100-199) LDL Cholesterol, Calculated 121.600mg/dL (0-99) VLDL Cholesterol 31.400mg/dL HDL Cholesterol 38mg/dL (>39) Cholesterol/HDL Ratio 5.03 (0.0-4.4) Thyroid Stimulating Hormone (TSH) 0.397uIU/mL (0.450-4.500) Free Thyroxine 1.55ng/dL (0.82-1.77) Urine Color Yellow (YELLOW) Urine Appearance Hazy (CLEAR,HAZY) Urine pH 6.0 (5.0-8.0) Urine Specific [place] 1.005 (1.003-1.035) Urine Protein Negativemg/dL (NEG,TRACE) Urine Glucose (UA) Negativemg/dL (NEGATIVE) Urine Ketones Negativemg/dL (NEGATIVE) Urine Occult Blood Negative (NEGATIVE) Urine Nitrite Negative (NEGATIVE) Urine Bilirubin Negative (NEGATIVE) Urine Urobilinogen Normalmg/dL (NORMAL) Urine Leukocyte Esterase Large (NEGATIVE) Urine RBC 0-2/hpf (0-2) Urine WBC 11-50/hpf (0-5) Urine Epithelial Cells Few/hpf (NONE-MOD) Urine Crystals None seen (NONE SEEN) Urine Bacteria Few/hpf (NONE-FEW) Urine Hyaline Casts None/lpf (NONE) Urine Granular Casts None seen (NONE SEEN) Urine Waxy Casts None seen (NONE SEEN) Urine Red Blood Cell Casts None seen (NONE SEEN) Urine White Blood Cell Casts None seen (NONE SEEN) Urine Mucus None seen (None Seen) Urine Trichomonas None seen (NONE SEEN) Urine Yeast None (NONE SEEN) Urinalysis Comment None Urine Culture Reflexed Indicated Hold Urine Received (Received) White Blood Count 7.4th/mm3 (3.8-10.1) Red Blood Count 4.58mil/mm3 (3.90-5.20) Hemoglobin 13.7g/dL (12.0-15.6) Hematocrit 40.9% (35.0-46.0) Mean Corpuscular Volume 89.3fL (81-100) Mean Corpuscular Hemoglobin 29.9pg (27.0-35.0) Mean Corpuscular Hemoglobin Concent 33.5% (32.0-37.0) Red Cell Distribution Width 13.0% (12.3-15.4) Platelet Count 215bil/L (150-400) Neutrophils (%) (Auto) 54.5% (40-74) Lymphocytes (%) (Auto) 30.0% (14-46) Monocytes (%) (Auto) 9.0% (4-12) Eosinophils (%) (Auto) 5.7% (0-5) Basophils (%) (Auto) 0.5% (0-3) Sodium Level 140mEq/L (134-144) Potassium Level 4.5mEq/L (3.5-5.2) Chloride Level 102mEq/L (97-108) Carbon Dioxide Level 28mmol/L (18-29) Blood Urea Nitrogen 17mg/dL (8-27) Creatinine 0.85mg/dL (0.57-1.00) Estimat Glomerular Filtration Rate 92mL/min (>59) Glucose Level 100mg/dL (60-99) Calcium Level 9.1mg/dL (8.5-10.1) Magnesium Level 2.0mg/dL (1.6-2.6) Total Bilirubin 0.7mg/dL (0.0-1.2) Aspartate Amino Transf (AST/SGOT) 23U/L (0-50) Alanine Aminotransferase (ALT/SGPT) 20U/L (0-32) Alkaline Phosphatase 80U/L (25-165) Total Protein 6.0g/dL (6.4-8.4) Albumin 3.6g/dL (3.4-5.0) Microbiology Results Name: PEGGY GHOTRA Age/Sex: 81/F Attend Dr: Fidelina Hernandez Acct: [id number] Unit: [id number] Status: ADM Dipti Location: [facility] 5001 Re01/23/17 Disch: Specimen: [id number] Collected: 01/23/17 Status: RES Req#: [id number] Received: 01/23/17 Source: URINE CC Sp Desc : STUART Francis Dr: ALDA,ED Ordered: URINE CULT Procedure Result Verified Site Microbiology TYESHA CULT URINE Preliminary 01/24/17 Insufficient growth, culture is reincubated. Discharge Medications Discharge Medications Aspirin (Aspirin) 81 Mg Tablet 81 MG PO DAILY Prescribed by: KEV DAHL MD Cefuroxime Axetil (Cefuroxime) 500 Mg Tablet 500 MG PO BID Prescribed by: KEV DAHL MD Levothyroxine (Synthroid) 100 Mcg Tablet 100 MCG PO DAILY (Reported) Lisinopril (Lisinopril) 20 Mg Tablet 20 MG PO DAILY (Reported) Pravastatin (Pravachol) 20 Mg Tablet 10 MG PO HS Prescribed by: KEV DAHL MD Followup Plan Disposition: Patient is being discharged home with her daughter. I spoke with patient's daughter at the time of discharge as well. Discharge Diet: Heart Healthy Discharge Activity: No restrictions (Patient may return to her usual activities gradually as tolerated.) Follow-up Provider: Steph Castillo MD Follow-up with PCP in: 1 week (Patient needs to be on a Statin and Aspirin) Time spent Time spent on discharging this patient was greater than 35 minutes, over half of which was involved in counseling and coordination of care. Alverto Dahl MD Jan 26, 2017 00:23
== END 2017-01-25 16:09 | disposition home or self-care (01) ==
LOC: SED 17:39 → MPC 19:42
PROVIDERS: ADMIT Internal Medicine; ATTEND Internal Medicine
DX: G45.9 Transient cerebral ischemic attack, unspecified (principal); R13.0 Aphagia; I10 Essential (primary) hypertension; I48.0 Paroxysmal atrial fibrillation; E03.9 Hypothyroidism, unspecified; E87.1 Hypo-osmolality and hyponatremia; R73.9 Hyperglycemia, unspecified; I73.9 Peripheral vascular disease, unspecified; E78.5 Hyperlipidemia, unspecified; J45.909 Unspecified asthma, uncomplicated; M51.36 Other intervertebral disc degeneration, lumbar region; Z88.0 Allergy status to penicillin
CPT/HCPCS: 36415; 70450; 70549; 70553; 80053; 80061; 81000; 83036; 83735; 84439; 84443; 84484; 85025; 85610; 85730; 87086; 87088; 92610; 93005; 96365; 97166; 99285; A9585; C8929; G0378; G8996; G8997; G8998; J0696; J7030